=== PATIENT | female | born 1990 | race American Indian/Alaskan Native ===

== ENCOUNTER 2018-05-29 13:55 | Outpatient (CLI) | payer MEDICAID ==
[2018-05-29 14:41] VITALS: BP 130/71
[2018-05-29] MEDS ORDERED: LACTATED RINGERS 500 ML IV ONE (16:09)
== END 2018-05-29 15:50 | disposition home or self-care (01) ==
LOC: EDSTATUS 14:22 → TRG 14:24
PROVIDERS: ATTEND Obstetrics & Gynecology
DX: O47.03 False labor before 37 completed weeks of gestation, third trimester (principal); Z3A.30 30 weeks gestation of pregnancy
CPT/HCPCS: 59025

== ENCOUNTER 2020-07-10 10:24 | Emergency (ER) | payer MEDICAID ==
[2020-07-10 10:30] VITALS: BP 166/105
[2020-07-10] MEDS ORDERED: predniSONE 20 MG TAB PO ONE (10:50)
--- NOTE | 2020-07-10 10:56 | Emergency Department Report ---
ED General Adult HPI - General Chief complaint: Skin Rash Stated complaint: RASH Time Seen by Provider: 07/10/20 10:40 Source: patient Mode of arrival: Ambulatory Limitations: No Limitations - History of Present Illness Initial comments: 30-year-old -Lithuanian female patient presents with complaints of itchy rash under the arms to the hands and the groin x4 days. Patient states she has history of eczema and some of the rash appears to be her eczema. She denies history of eczema of her hands and denies any recent hotel stays or individuals with similar symptoms of itchiness around her. She denies any pain or fever. She reports hydrocortisone cream is not helping. - Related Data Previous Rx's Medication Instructions Recorded Last Taken Type Ampicillin 500 mg PO Q6H #28 capsule 05/29/18 Unknown Rx metroNIDAZOLE [Flagyl] 500 mg PO Q12HR #14 tab 05/29/18 Unknown Rx Loratadine 10 mg PO QDAY 10 Days #10 tablet 07/10/20 Unknown Rx Permethrin 5% [Acticin 5% CREAM] 1 applicatio TP ONCE #1 tube 07/10/20 Unknown Rx Prednisone [predniSONE 5 mg (6-Day 5 mg PO .TAPER #1 tab.ds.pk 07/10/20 Unknown Rx Pack, 21 Tabs)] Triamcinolone Acetonide 80 gm TP TID PRN 7 Days #1 07/10/20 Unknown Rx oint...g. Allergies Allergy/AdvReac Type Severity Reaction Status Date / Time No Known Allergies Allergy Verified 03/13/15 13:42 ED Review of Systems ROS: Stated complaint: RASH Other details as noted in HPI Constitutional: denies: chills, fever Respiratory: denies: cough, shortness of breath Musculoskeletal: denies: joint swelling, arthralgia Skin: rash. denies: change in color Neurological: denies: headache Hematological/Lymphatic: denies: swollen glands ED Past Medical Hx - Past Medical History Previous Medical History?: Yes Hx Hypertension: Yes Hx Diabetes: No Hx Deep Vein Thrombosis: No Hx Renal Disease: No Hx Sickle Cell Disease: No Hx Seizures: No Hx Asthma: No Hx HIV: No - Surgical History Past Surgical History?: Yes Additional Surgical History: R foot surgery - Social History Smoking Status: Never Smoker Substance Use Type: None - Medications Home Medications: Home Medications Medication Instructions Recorded Confirmed Last Taken Type Ampicillin 500 mg PO Q6H #28 capsule 05/29/18 Unknown Rx metroNIDAZOLE [Flagyl] 500 mg PO Q12HR #14 tab 05/29/18 Unknown Rx Loratadine 10 mg PO QDAY 10 Days #10 tablet 07/10/20 Unknown Rx Permethrin 5% [Acticin 5% CREAM] 1 applicatio TP ONCE #1 tube 07/10/20 Unknown Rx Prednisone [predniSONE 5 mg (6-Day 5 mg PO .TAPER #1 tab.ds.pk 07/10/20 Unknown Rx Pack, 21 Tabs)] Triamcinolone Acetonide 80 gm TP TID PRN 7 Days #1 07/10/20 Unknown Rx oint...g. ED Physical Exam - General Limitations: No Limitations General appearance: alert, in no apparent distress, obese - Head Head exam: Present: atraumatic, normocephalic - Eye Eye exam: Present: normal appearance. Absent: scleral icterus - Respiratory Respiratory exam: Present: normal lung sounds bilaterally. Absent: respiratory distress - Cardiovascular Cardiovascular Exam: Present: regular rate, normal rhythm. Absent: systolic murmur, diastolic murmur, rubs, gallop - Neurological Exam Neurological exam: Present: alert, oriented X3 - Psychiatric Psychiatric exam: Present: normal affect - Skin Skin exam: Present: warm, dry, intact, normal color, other (Papular rash noted bilaterally and diffusely spread on fingers and dorsal aspect of hands without erythema or drainage; there is an eczemayous dry flat rash noted bilaterally to the axilla and the antecubital fossa; diffuse papular rash noted to the lower abdomen; no signs of cellulitis are noted). Absent: erythema ED Course Vital Signs 07/10/20 10:29 Temperature 98.2 F Pulse Rate 87 Respiratory 16 Rate Blood Pressure 166/105 [Right] O2 Sat by Pulse 100 Oximetry ED Medical Decision Making - Medical Decision Making 30-year-old -Lithuanian female patient presents with complaints of itchy rash under the arms to the hands and the groin x4 days. Patient states she has history of eczema and some of the rash appears to be her eczema. She denies history of eczema of her hands and denies any recent hotel stays or individuals with similar symptoms of itchiness around her. She denies any pain or fever. She reports hydrocortisone cream is not helping. Papular rash noted to the lower abdomen and hand appears to be consistent with scabies and rash noted to the axilla and antecubital fossa appears to be consistent with eczema. Discussed possible scabies with patient. Permethrin prescribed along with prednisone and triamcinolone. She is well-appearing and stable for discharge home. Discussed cleaning precautions to read home of scabies. Recommend follow-up with primary care in 3 to 5 days. Strict return precautions were discussed in detail with patient who verbalizes understanding. Critical care attestation.: If time is entered above; I have spent that time in minutes in the direct care of this critically ill patient, excluding procedure time. ED Disposition Clinical Impression: Scabies Eczema Qualifiers: Eczema type: flexural Qualified Code(s): L20.82 - Flexural eczema Disposition: - TO HOME OR SELFCARE Is pt being admited?: No Condition: Stable Instructions: Eczema (ED), Scabies (ED) Prescriptions: Permethrin 5% [Acticin 5% CREAM] 1 applicatio TP ONCE #1 tube Loratadine 10 mg PO QDAY 10 Days #10 tablet Prednisone [predniSONE 5 mg (6-Day Pack, 21 Tabs)] 5 mg PO .TAPER #1 tab.ds.pk Triamcinolone Acetonide 80 gm TP TID PRN 7 Days #1 oint...g. PRN Reason: Itching Referrals: PRIMARY CARE, [Primary Care Provider] - 3-5 Days
== END 2020-07-10 11:18 | disposition home or self-care (01) ==
LOC: ED 10:24
DX: B86 Scabies (principal); L30.9 Dermatitis, unspecified; I10 Essential (primary) hypertension; Z79.899 Other long term (current) drug therapy; Z98.890 Other specified postprocedural states
CPT/HCPCS: 99282; J7512

== ENCOUNTER 2020-07-25 11:36 | Emergency (ER) | payer SELFPAY ==
[2020-07-25 12:27] VITALS: BP 170/111
--- NOTE | 2020-07-25 13:24 | Emergency Department Report ---
- General Chief complaint: Skin/Abscess/Foreign Body Stated complaint: SPIDER BITE Time Seen by Provider: 07/25/20 13:07 Source: patient Mode of arrival: Ambulatory Limitations: No Limitations - History of Present Illness Initial comments: This is a 30-year-old female nontoxic, well nourished in appearance, no acute signs of distress presents to the ED with c/o of redness and pain to left forehead x1 day. Patient denies any pus or drainage. Patient is unsure what bit her. Patient denies any fever, chills, nausea, vomiting, chest pain, shortness of breath, headache or stiff neck. Patient denies any allergies or significant past medical history. -: days(s) () Tetanus Up to Date: yes (2019) Location: face Severity: mild Severity scale (0 -10): 8 Quality: aching Consistency: constant Improves with: none Worsens with: none Associated symptoms: denies other symptoms - Related Data Previous Rx's Medication Instructions Recorded Last Taken Type Ampicillin 500 mg PO Q6H #28 capsule 05/29/18 Unknown Rx metroNIDAZOLE [Flagyl] 500 mg PO Q12HR #14 tab 05/29/18 Unknown Rx Loratadine 10 mg PO QDAY 10 Days #10 tablet 07/10/20 Unknown Rx Permethrin 5% [Acticin 5% CREAM] 1 applicatio TP ONCE #1 tube 07/10/20 Unknown Rx Prednisone [predniSONE 5 mg (6-Day 5 mg PO .TAPER #1 tab.ds.pk 07/10/20 Unknown Rx Pack, 21 Tabs)] Triamcinolone Acetonide 80 gm TP TID PRN 7 Days #1 07/10/20 Unknown Rx oint...g. Sulfamethoxazole/Trimethoprim 1 each PO BID #14 tablet 07/25/20 Unknown Rx [Bactrim DS TAB] Allergies Allergy/AdvReac Type Severity Reaction Status Date / Time No Known Allergies Allergy Verified 03/13/15 13:42 Abscess Boil HPI - HPI Chief Complaint: Skin/Abscess/Foreign Body Stated Complaint: SPIDER BITE Time Seen by Provider: 07/25/20 13:07 Home Medications: Previous Rx's Medication Instructions Recorded Last Taken Type Ampicillin 500 mg PO Q6H #28 capsule 05/29/18 Unknown Rx metroNIDAZOLE [Flagyl] 500 mg PO Q12HR #14 tab 05/29/18 Unknown Rx Loratadine 10 mg PO QDAY 10 Days #10 tablet 07/10/20 Unknown Rx Permethrin 5% [Acticin 5% CREAM] 1 applicatio TP ONCE #1 tube 07/10/20 Unknown Rx Prednisone [predniSONE 5 mg (6-Day 5 mg PO .TAPER #1 tab.ds.pk 07/10/20 Unknown Rx Pack, 21 Tabs)] Triamcinolone Acetonide 80 gm TP TID PRN 7 Days #1 07/10/20 Unknown Rx oint...g. Sulfamethoxazole/Trimethoprim 1 each PO BID #14 tablet 07/25/20 Unknown Rx [Bactrim DS TAB] Allergies/Adverse Reactions: Allergies Allergy/AdvReac Type Severity Reaction Status Date / Time No Known Allergies Allergy Verified 03/13/15 13:42 ED Review of Systems ROS: Stated complaint: SPIDER BITE Other details as noted in HPI Constitutional: denies: chills, fever Eyes: denies: eye pain, eye discharge, vision change ENT: denies: ear pain, throat pain Respiratory: denies: cough, shortness of breath, wheezing Cardiovascular: denies: chest pain, palpitations Endocrine: no symptoms reported Gastrointestinal: denies: abdominal pain, nausea, diarrhea Genitourinary: denies: urgency, dysuria, discharge Musculoskeletal: denies: back pain, joint swelling, arthralgia Skin: denies: rash, lesions Neurological: denies: headache, weakness, paresthesias Psychiatric: denies: anxiety, depression Hematological/Lymphatic: denies: easy bleeding, easy bruising ED Past Medical Hx - Past Medical History Previous Medical History?: Yes Hx Hypertension: Yes Hx Diabetes: No Hx Deep Vein Thrombosis: No Hx Renal Disease: No Hx Sickle Cell Disease: No Hx Seizures: No Hx Asthma: No Hx HIV: No - Surgical History Past Surgical History?: Yes Additional Surgical History: R foot surgery - Social History Smoking Status: Never Smoker Substance Use Type: None - Medications Home Medications: Home Medications Medication Instructions Recorded Confirmed Last Taken Type Ampicillin 500 mg PO Q6H #28 capsule 05/29/18 Unknown Rx metroNIDAZOLE [Flagyl] 500 mg PO Q12HR #14 tab 05/29/18 Unknown Rx Loratadine 10 mg PO QDAY 10 Days #10 tablet 07/10/20 Unknown Rx Permethrin 5% [Acticin 5% CREAM] 1 applicatio TP ONCE #1 tube 07/10/20 Unknown Rx Prednisone [predniSONE 5 mg (6-Day 5 mg PO .TAPER #1 tab.ds.pk 07/10/20 Unknown Rx Pack, 21 Tabs)] Triamcinolone Acetonide 80 gm TP TID PRN 7 Days #1 07/10/20 Unknown Rx oint...g. Sulfamethoxazole/Trimethoprim 1 each PO BID #14 tablet 07/25/20 Unknown Rx [Bactrim DS TAB] ED Physical Exam - General Limitations: No Limitations General appearance: alert, in no apparent distress - Head Head exam: Present: atraumatic, normocephalic - Expanded Head Exam Expanded 1 - 3 cm x 3 cm cellulitis with no swelling or induration - Eye Eye exam: Present: normal appearance - Neck Neck exam: Present: normal inspection, full ROM - Respiratory Respiratory exam: Absent: respiratory distress - Cardiovascular Cardiovascular Exam: Present: regular rate - Extremities Exam Extremities exam: Present: full ROM - Back Exam Back exam: Present: full ROM - Neurological Exam Neurological exam: Present: alert, oriented X3, normal gait - Psychiatric Psychiatric exam: Present: normal affect, normal mood - Skin Skin exam: Present: warm, dry, intact, normal color. Absent: rash ED Course Vital Signs 07/25/20 12:24 Temperature 98.3 F Pulse Rate 77 Respiratory 16 Rate Blood Pressure 170/111 O2 Sat by Pulse 100 Oximetry - Reevaluation(s) Reevaluation #1: 07/25/20 13:22 Patient is speaking in full sentences with no signs of distress noted. ED Medical Decision Making - Medical Decision Making This is a 30-year-old female that presents with cellulitis. Patient is stable and was examined by me. There is no induration, fluctuance. No signs of abscess formation. The area has been outlined with a permanent marker and patient was instructed to observe symptoms of increased redness or swelling and to return to the ER if this does occur. I will discharge patient with Bactrim. Patient was referred to Follow-up with a primary care doctor in 3-5 days or if symptoms worsen and continue return to emergency room as soon as possible. At time of discharge, the patient does not seem toxic or ill in appearance. No acute signs of distress noted. Patient agrees to discharge treatment plan of care. No further questions noted by the patient. Critical care attestation.: If time is entered above; I have spent that time in minutes in the direct care of this critically ill patient, excluding procedure time. ED Disposition Clinical Impression: Cellulitis Qualifiers: Site of cellulitis: face Qualified Code(s): L03.211 - Cellulitis of face Disposition: DC- TO HOME OR SELFCARE Is pt being admited?: No Does the pt Need Aspirin: No Condition: Stable Instructions: Cellulitis (ED) Additional Instructions: Follow-up with a primary care doctor in 3-5 days or if symptoms worsen and continue return to emergency room as soon as possible. Prescriptions: Sulfamethoxazole/Trimethoprim [Bactrim DS TAB] 1 each PO BID #14 tablet Referrals: PRIMARY CAREMD [Referring] - 3-5 Days DESTINEE DUNHAM MD [Staff Physician] - 3-5 Days Forms: Work/School Release Form(ED)
== END 2020-07-25 13:50 | disposition home or self-care (01) ==
LOC: ED 11:36
DX: L03.211 Cellulitis of face (principal); Z98.890 Other specified postprocedural states; Z79.899 Other long term (current) drug therapy; W57.XXXA Bitten or stung by nonvenomous insect and other nonvenomous arthropods, initial encounter; Y93.89 Activity, other specified; Y92.89 Other specified places as the place of occurrence of the external cause; Y99.8 Other external cause status
CPT/HCPCS: 99282

== ENCOUNTER 2021-02-24 17:08 | Emergency (ER) | payer MEDICAID ==
[2021-02-24 18:38] VITALS: BP 166/106
[2021-02-24] MEDS ORDERED: ONDANSETRON 4 MG/2 ML INJ IV ONE (23:31)
[2021-02-24] MEDS ORDERED: SODIUM CHLORIDE 0.9% 1000 ML 1,000 ML IV ONE (23:31)
[2021-02-25 00:40] LABS: Basophils % (Auto) 0.3 % (0.0-1.8); Eosinophils % (Auto) 0.3 % (0.0-4.3); Hematocrit 38.7 % (30.3-42.9); Hemoglobin 12.9 gm/dl (10.1-14.3); Lymphocytes # (Auto) 2.1 K/mm3 (1.2-5.4); Lymphocytes % (Auto) 24.8 % (13.4-35.0); Mean Corpuscular HGB Conc 33 % (30-34); Mean Corpuscular Volume 81 fl (79-97); Monocytes # (Auto) 0.5 K/mm3 (0.0-0.8); Monocytes % (Auto) 5.7 % (0.0-7.3); Platelet Count 375 K/mm3 (140-440); Red Blood Count 4.79 M/mm3 (3.65-5.03); Red Cell Distribution Width 16.3 % (13.2-15.2)
[2021-02-25 01:01] LABS: Bilirubin,Urine NEG (Negative); Blood,Urine NEG (Negative); Color,Urine Yellow (Yellow); Mucus,Urine 3+ /HPF; Protein,Urine <15 mg/dL mg/dL (Negative); Urobilinogen,Urine < 2.0 mg/dL (<2.0)
--- NOTE | 2021-02-25 01:33 | XRay Report ---
CHEST 1 VIEW 02/25/2021 12:23 AM INDICATION / CLINICAL INFORMATION: Cough. Head congestion. Dizziness and nausea for 2 days. COMPARISON: None available. FINDINGS: SUPPORT DEVICES: None. HEART / MEDIASTINUM: The heart size and pulmonary vasculature are normal for technique. LUNGS / PLEURA: No significant pulmonary or pleural abnormality. No pneumothorax. ADDITIONAL FINDINGS: No significant additional findings. IMPRESSION: No acute findings. Signer Name: Diilp Koch MD Signed: 02/25/2021 1:28 AM Workstation Name: [id number]
[2021-02-25 02:14] LABS: Alanine Aminotransferase 7 units/L (7-56); Albumin 3.9 g/dL (3.9-5); Blood Urea Nitrogen 11 mg/dL (7-17); Calcium 9.6 mg/dL (8.4-10.2); Hemolysis Index 2
[2021-02-25 02:16] LABS: BUN/Creatinine Ratio 16
--- NOTE | 2021-02-25 04:05 | Emergency Department Report ---
ED General Adult HPI - General Chief complaint: Dizziness Stated complaint: DIZZY VOMITING X2DAYS Source: patient Mode of arrival: Wheelchair Limitations: No Limitations - History of Present Illness Initial comments: Patient is a 31-year-old -Bar[place] female with a history of hypertension who presents to the ED with complaint of acute onset persistent frontal sinus pressure and headache, nausea and vomiting, lightheadedness and dizziness, generalized weakness for the last 2 days, worse in the last 12 hours. Patient states that she has not been able to keep anything down because of persistent nausea and vomiting and lightheadedness. Patient states that she tried to take medications [id number] with no relief but I was unable to keep anything down because of persistent nausea and vomiting. Patient denies syncope, chest pain, shortness of breath, cough, abdominal pain, diarrhea, neck pain, sore throat, change in vision, dysuria, urine frequency and urgency or vaginal bleeding and vaginal discharge. MD Complaint: Lightheadedness, frontal sinus pressure and headache; nausea and vomiting -: Sudden, days(s) (2) Location: head, face Radiation: non-radiation Severity scale (0 -10): 8 Quality: aching, sharp Consistency: constant Improves with: none Worsens with: none Associated Symptoms: denies other symptoms, cough, headaches, loss of appetite, malaise. denies: confusion, chest pain, diaphoresis, fever/chills, nausea/vomiting, rash, seizure, shortness of breath, syncope, weakness Treatments Prior to Arrival: none - Related Data Previous Rx's Medication Instructions Recorded Last Taken Type Ampicillin 500 mg PO Q6H #28 capsule 05/29/18 Unknown Rx metroNIDAZOLE [Flagyl] 500 mg PO Q12HR #14 tab 05/29/18 Unknown Rx Loratadine 10 mg PO QDAY 10 Days #10 tablet 07/10/20 Unknown Rx Permethrin 5% [Acticin 5% CREAM] 1 applicatio TP ONCE #1 tube 07/10/20 Unknown Rx Prednisone [predniSONE 5 mg (6-Day 5 mg PO .TAPER #1 tab.ds.pk 07/10/20 Unknown Rx Pack, 21 Tabs)] Triamcinolone Acetonide 80 gm TP TID PRN 7 Days #1 07/10/20 Unknown Rx oint...g. Sulfamethoxazole/Trimethoprim 1 each PO BID #14 tablet 07/25/20 Unknown Rx [Bactrim DS TAB] Amoxicillin [Trimox CAP] 500 mg PO Q8H #30 capsule 02/25/21 Unknown Rx Ibuprofen [Motrin] 800 mg PO Q8HR PRN #30 tablet 02/25/21 Unknown Rx Ondansetron [Zofran Odt] 4 mg PO Q8HR PRN #20 tab.rapdis 02/25/21 Unknown Rx Allergies Allergy/AdvReac Type Severity Reaction Status Date / Time No Known Allergies Allergy Verified 03/13/15 13:42 ED Review of Systems ROS: Stated complaint: DIZZY VOMITING X2DAYS Other details as noted in HPI Constitutional: denies: chills, fever Eyes: denies: eye pain, eye discharge, vision change ENT: congestion, other (Frontal sinus pressure and headache). denies: ear pain, throat pain Respiratory: denies: cough, shortness of breath, wheezing Cardiovascular: denies: chest pain, palpitations Endocrine: no symptoms reported Gastrointestinal: nausea, vomiting. denies: abdominal pain, diarrhea Genitourinary: denies: urgency, dysuria, discharge Musculoskeletal: denies: back pain, joint swelling, arthralgia Skin: denies: rash, lesions Neurological: headache, other (Lightheadedness). denies: weakness, paresthesias Psychiatric: denies: anxiety, depression Hematological/Lymphatic: denies: easy bleeding, easy bruising ED Past Medical Hx - Past Medical History Previous Medical History?: Yes Hx Hypertension: Yes Hx Diabetes: No Hx Deep Vein Thrombosis: No Hx Renal Disease: No Hx Sickle Cell Disease: No Hx Seizures: No Hx Asthma: No Hx HIV: No - Surgical History Additional Surgical History: R foot surgery - Social History Smoking Status: Never Smoker Substance Use Type: None - Medications Home Medications: Home Medications Medication Instructions Recorded Confirmed Last Taken Type Ampicillin 500 mg PO Q6H #28 capsule 05/29/18 Unknown Rx metroNIDAZOLE [Flagyl] 500 mg PO Q12HR #14 tab 05/29/18 Unknown Rx Loratadine 10 mg PO QDAY 10 Days #10 tablet 07/10/20 Unknown Rx Permethrin 5% [Acticin 5% CREAM] 1 applicatio TP ONCE #1 tube 07/10/20 Unknown Rx Prednisone [predniSONE 5 mg (6-Day 5 mg PO .TAPER #1 tab.ds.pk 07/10/20 Unknown Rx Pack, 21 Tabs)] Triamcinolone Acetonide 80 gm TP TID PRN 7 Days #1 07/10/20 Unknown Rx oint...g. Sulfamethoxazole/Trimethoprim 1 each PO BID #14 tablet 07/25/20 Unknown Rx [Bactrim DS TAB] Amoxicillin [Trimox CAP] 500 mg PO Q8H #30 capsule 02/25/21 Unknown Rx Ibuprofen [Motrin] 800 mg PO Q8HR PRN #30 tablet 02/25/21 Unknown Rx Ondansetron [Zofran Odt] 4 mg PO Q8HR PRN #20 tab.rapdis 02/25/21 Unknown Rx ED Physical Exam - General Limitations: No Limitations General appearance: alert, in no apparent distress - Head Head exam: Present: atraumatic, normocephalic, normal inspection - Eye Eye exam: Present: normal appearance, PERRL, EOMI - ENT ENT exam: Present: normal orophraynx, mucous membranes moist, TM's normal bilaterally, normal external ear exam, other (Palpable severe frontal sinus tenderness) - Neck Neck exam: Present: normal inspection, full ROM - Respiratory Respiratory exam: Present: normal lung sounds bilaterally. Absent: respiratory distress, wheezes, stridor, chest wall tenderness, accessory muscle use, decreased breath sounds - Cardiovascular Cardiovascular Exam: Present: regular rate, normal rhythm, normal heart sounds. Absent: systolic murmur, diastolic murmur, rubs, gallop - GI/Abdominal GI/Abdominal exam: Present: soft, normal bowel sounds. Absent: tenderness, guarding, hyperactive bowel sounds, hypoactive bowel sounds, organomegaly - Extremities Exam Extremities exam: Present: normal inspection, full ROM, normal capillary refill - Back Exam Back exam: Present: normal inspection, full ROM. Absent: tenderness, CVA tenderness (R), muscle spasm, paraspinal tenderness, vertebral tenderness - Neurological Exam Neurological exam: Present: alert, oriented X3, CN II-XII intact, normal gait, reflexes normal - Psychiatric Psychiatric exam: Present: normal affect, normal mood - Skin Skin exam: Present: warm, dry, intact, normal color. Absent: rash ED Course Vital Signs 02/24/21 18:37 Temperature 98.5 F Pulse Rate 88 Respiratory 18 Rate Blood Pressure 166/106 [Right] O2 Sat by Pulse 100 Oximetry ED Medical Decision Making - Lab Data Result diagrams: 02/24/21 23:43 02/24/21 23:43 - Radiology Data Radiology results: report reviewed, image reviewed [facility] [address] [place] [address] XRay Report Signed Patient: JENNA ZENDEJAS MR#: [id number] : 1990 Acct:[id number] Age/Sex: 31 / F ADM Date: 02/24/21 Loc: ED Attending Dr: Ordering Physician: CARLOS RENTERIA Date of Service: 02/24/21 Procedure(s): XR chest 1V ap Accession Number(s): [id number] cc: CARLOS RENTERIA Fluoro Time In Minutes: CHEST 1 VIEW 02/25/2021 12:23 AM INDICATION / CLINICAL INFORMATION: Cough. Head congestion. Dizziness and nausea for 2 days. COMPARISON: None available. FINDINGS: SUPPORT DEVICES: None. HEART / MEDIASTINUM: The heart size and pulmonary vasculature are normal for technique. LUNGS / PLEURA: No significant pulmonary or pleural abnormality. No pneumothorax. ADDITIONAL FINDINGS: No significant additional findings. IMPRESSION: No acute findings. Signer Name: Dilip Koch MD Signed: 02/25/2021 1:28 AM Workstation Name: [id number] Transcribed By: RT Dictated By: Dilip Koch MD Electronically Authenticated By: Dilip Koch MD Signed Date/Time: 02/25/21127 DD/ 7 TD/TT: - Medical Decision Making This is a 31-year-old -[place] female with a history of hypertension who presents to the ED with complaint of acute onset persistent frontal sinus pressure and headache, nausea and vomiting, lightheadedness and dizziness, generalized weakness for the last 2 days, worse in the last 12 hours. Patient states that she has not been able to keep anything down because of persistent nausea and vomiting and lightheadedness. Patient states that she tried to take medications [id number] with no relief but I was unable to keep anything down because of persistent nausea and vomiting. In the ED, patient is alert and oriented x3 and is not in any distress. Lab test results were reviewed and are all nonactionable. Chest x-ray showed no acute cardiopulmonary abnormalities or pneumonitis. Patient was treated in the ED for nausea and vomiting with antiemetics and given normal saline 1 L IV bolus x1. Patient has not had any nausea or vomiting throughout her ED stay. On reevaluation, patient nausea and vomiting resolved, lightheaded and also improved patient is ambulatory in the ED with no difficulties. The orthostatic blood pressure was unremarkable. Patient symptoms could be due to frontal sinusitis or viral syndrome. Patient was therefore discharged home on medications and advised to follow-up with her primary care physician in 3 to 5 days for reevaluation. Patient was advised return to the ED immediately if symptoms get worse. - Differential Diagnosis Sinusitis; URI; dehydration; vertigo; gastroenteritis Critical care attestation.: If time is entered above; I have spent that time in minutes in the direct care of this critically ill patient, excluding procedure time. ED Disposition Clinical Impression: Nausea and vomiting in adult patient, Intermittent lightheadedness, Acute non-recurrent frontal sinusitis, Viral gastroenteritis Disposition: TO HOME OR SELFCARE Is pt being admited?: No Does the pt Need Aspirin: No Condition: Stable Instructions: Nausea and Vomiting, Adult, [id number], Sinusitis, Adult, [id number], Upper Respiratory Infection, Adult, [id number], Viral Gastroenteritis, Adult, [id number] Additional Instructions: All lab test results were reviewed and are all nonactionable. Chest x-ray shows no acute cardiopulmonary abnormalities or pneumonitis. Your symptoms are likely due to viral gastroenteritis versus sinusitis. Therefore take medication with food, drink plenty of fluids and follow-up with your primary care physician in 3 to 5 days for reevaluation. Return to the ED immediately if s ymptoms get worse. Prescriptions: Ibuprofen [Motrin] 800 mg PO Q8HR PRN #30 tablet PRN Reason: Pain , Severe (7-10) Amoxicillin [Trimox CAP] 500 mg PO Q8H #30 capsule Ondansetron [Zofran Odt] 4 mg PO Q8HR PRN #20 tab.rapdis PRN Reason: Nausea Referrals: DONAVAN LINK MD [Primary Care Provider] - 3-5 Days Forms: Work/School Release Form(ED) Time of Disposition: 04:08 Print Language: MALIAN
== END 2021-02-25 04:20 | disposition home or self-care (01) ==
LOC: ED 17:08
DX: A08.4 Viral intestinal infection, unspecified (principal); J01.10 Acute frontal sinusitis, unspecified; R42 Dizziness and giddiness; R11.2 Nausea with vomiting, unspecified; I10 Essential (primary) hypertension; Z98.890 Other specified postprocedural states; Z79.1 Long term (current) use of non-steroidal anti-inflammatories (NSAID); Z79.2 Long term (current) use of antibiotics; Z79.899 Other long term (current) drug therapy
CPT/HCPCS: 36415; 71045; 80053; 81001; 84484; 84703; 85025; 96361; 96374; 99284; J2405; J7030